=== PATIENT | female | born 1990 | race Caucasian/White ===

== ENCOUNTER 2018-02-04 22:18 | Emergency (ER) | payer SELFPAY ==
[~2018-02-04] VITALS: Ht 177.8 cm; Wt 103.0 kg
[2018-02-04 22:23] VITALS: Ht 177.8 cm; Wt 103.0 kg
[2018-02-05 00:56] VITALS: BP 133/75
== END 2018-02-05 00:56 | disposition home or self-care (01) ==
LOC: ED 22:18
DX: J98.01 Acute bronchospasm (principal)
CPT/HCPCS: J7512; J7613; J7644

== ENCOUNTER 2019-09-12 13:01 | Emergency (ER) | payer SELFPAY ==
[~2019-09-12] VITALS: Ht 177.8 cm; Wt 108.9 kg
[2019-09-12 13:14] VITALS: Ht 177.8 cm; Wt 108.9 kg
[2019-09-12 17:37] VITALS: BP 127/81
== END 2019-09-12 17:37 | disposition home or self-care (01) ==
LOC: ED 13:01
DX: N83.8 Other noninflammatory disorders of ovary, fallopian tube and broad ligament (principal); N39.0 Urinary tract infection, site not specified
CPT/HCPCS: Q0092